=== PATIENT | female | born 1985 | race Caucasian/White ===

== ENCOUNTER 2017-08-13 16:25 | Emergency (ER) | payer SELFPAY ==
[~2017-08-13] VITALS: Ht 167.6 cm; Wt 57.6 kg
[2017-08-13 16:43] VITALS: Ht 167.6 cm; Wt 57.6 kg
[2017-08-13 18:09] VITALS: BP 126/78
== END 2017-08-13 18:00 | disposition home or self-care (01) ==
LOC: ED 16:25
DX: K08.89 Other specified disorders of teeth and supporting structures (principal); Z88.5 Allergy status to narcotic agent; Z88.6 Allergy status to analgesic agent

== ENCOUNTER 2017-08-31 16:32 | Emergency (ER) | payer SELFPAY ==
[~2017-08-31] VITALS: Ht 154.9 cm; Wt 56.2 kg
[2017-08-31 16:55] VITALS: Ht 154.9 cm; Wt 56.2 kg
[2017-08-31 18:33] LABS: PLATELET COUNT 337 x10^3mcL (130-400)
[2017-08-31 18:36] LABS: BASOPHIL % 2.4 % (0-2); RED CELL DISTRIBUTION WIDTH 18.5 % (11.5-14.5)
[2017-08-31 18:38] LABS: CALCIUM 8.9 mg/dL (8.5-10.1); CARBON DIOXIDE 27.1 mmol/L (21-32); CHLORIDE SERUM 105 mmol/L (98-107); CREATININE SERUM 0.6 mg/dL (0.6-1.0); GFR1 > 60 mL/min; GLUCOSE SERUM 88 mg/dL (74-106); POTASSIUM SERUM 3.6 mmol/L (3.5-5.1); SODIUM SERUM 143 mmol/L (136-145)
[2017-08-31 18:43] LABS: ALKALINE PHOSPHATASE 51 U/L (46-116); AST/SGOT 12 U/L (15-37); BILIRUBIN TOTAL 0.25 mg/dL (0.20-1.00); LIPASE 117 IU/L (73-393); TOTAL PROTEIN, SERUM 7.8 g/dL (6.4-8.2)
[2017-08-31 18:53] LABS: ALT/SGPT 9 U/L (14-59)
[2017-08-31 20:00] VITALS: BP 104/59
== END 2017-08-31 20:00 | disposition home or self-care (01) ==
LOC: ED 16:32
PROVIDERS: Emergency Medicine
DX: N83.201 Unspecified ovarian cyst, right side (principal); M79.7 Fibromyalgia; Z88.5 Allergy status to narcotic agent; Z88.1 Allergy status to other antibiotic agents
CPT/HCPCS: J1885